=== PATIENT | female | born 1940 | race African-American/Black ===

== ENCOUNTER → 2016-08-23 | Outpatient (CLI) | payer OTHER ==
--- NOTE | 2016-08-23 18:30 | WOMENS IMAGING REPORT ---
EXAM DESCRIPTION: 3D SCREENING MAMMO BILAT COMPLETED DATE/TIME: 08/23/2016 1:32 pm REASON FOR STUDY: ROUTINE BILATERAL SCREENING;Z12.31 Z12.31 ENCNTR SCREEN MAMMOGRAM FOR MALIGNANT N EOPLASM OF KP COMPARISON: Multiple since 2011 TECHNIQUE: Standard craniocaudal and mediolateral oblique views of each breast recorded using digita l acquisition and breast tomosynthesis. LIMITATIONS: None. FINDINGS: Findings present which are benign by mammographic criteria. No suspicious masses, calcifi cations or architectural distortion. Pertinent benign findings: Benign vascular arterial calcifications Read with the assistance of CAD. .[facility] - R2 Cenova Version 1.3 .[facility] Imaging - R2 Cenova Version 1.3 .[facility] Imaging - R2 Cenova Version 2.4 .[facility] [place] - R2 Cenova Version 2.4 .[facility] - R2 Court Administrator Version 9.2 Benign mammographic findings may include one or more of the following: Smooth masses, popcorn/rim/co arse calcifications, asymmetries, post-procedure changes, and lesions with long-standing stability. IMPRESSION: BENIGN MAMMOGRAPHIC FINDINGS. BIRADS 2 BREAST DENSITY: b. There are scattered areas of fibroglandular density. BIRAD: 2 BENIGN FINDING(S) RECOMMENDATION: RECOMMENDATION: ROUTINE SCREENING COMMENT: The patient has been notified of the results by letter per SA requirements. Additional no tification policies are in place for contacting patient with suspicious or incomplete findings. Quality ID #[id number]: The [employer] recommends an annual screening mammogram for women aged 40 years or over. This facility utilizes a reminder system to ensure that all patients receive reminder letters, and/or direct phone calls for appointments. This includes reminders for routine scr eening mammograms, diagnostic mammograms, or other Breast Imaging Interventions when appropriate. Th is patient will be placed in the appropriate reminder system. The [employer] (ACR) has developed recommendations for screening MRI of the breast s in certain patient populations, to be used in conjunction with mammography. Breast MRI surveillanc e may be appropriate for women with more than 20% lifetime risk of developing breast cancer as deter mined by genetic testing, significant family history of the disease, or history of mantle radiation f or Hodgkins Disease. ACR Practice Guidelines 2008. DBT Technology DBT is a type of tomographic mammography. With conventional mammography, overlapping breast tissue ma y make lesions difficult to detect, even with good compression. DBT uses an x-ray tube that rotates a round the breast, taking images at different angles. These images are then combined to create thin sl ices of the breast that the radiologist can view as a 3D reconstruction. The [employer] unit can perform full-field digital mammograms (2D imaging); or DBT (3D imaging); or both, in a combination mode that quickly performs both the mammogram and the tomosynthesis scan while the breast is still compressed. PQRS 6045F: Fluoroscopic imaging is not utilized for breast tomosynthesis. TECHNICAL DOCUMENTATION: FINDING NUMBER: (1) ASSESSMENT: (1) JOB ID: [id number] [employer]- All Rights Reserved
== END ==
LOC: WI 13:03
PROVIDERS: ATTEND Nurse Practitioner
DX: Z12.31 Encounter for screening mammogram for malignant neoplasm of breast (principal)
CPT/HCPCS: 77063; G0202; 77067

== ENCOUNTER → 2017-09-02 | Outpatient (CLI) | payer OTHER ==
--- NOTE | 2017-09-04 16:50 | WOMENS IMAGING REPORT ---
EXAM DESCRIPTION: 3D SCREENING MAMMO BILAT COMPLETED DATE/TIME: 09/02/2017 11:29 am REASON FOR STUDY: ROUTINE SCREENING;Z12.31 Z12.31 ENCNTR SCREEN MAMMOGRAM FOR MALIGNANT NEOPLASM OF PK COMPARISON: Multiple since 2010 TECHNIQUE: Standard craniocaudal and mediolateral oblique views of each breast recorded using digita l acquisition and breast tomosynthesis. LIMITATIONS: None. FINDINGS: No masses, calcifications or architectural distortion. No areas of suspicion. Read with the assistance of CAD. .[facility] - R2 Cenova Version 1.3 .[facility] Imaging - R2 Cenova Version 1.3 .[facility] - R2 Cenova Version 2.4 .[facility] [place] R2 Cenova Version 2.4 .[facility] - R2 Vp Product Management Version 9.2 IMPRESSION: NORMAL MAMMOGRAM. BIRADS 1. BREAST DENSITY: b. There are scattered areas of fibroglandular density. BIRAD: 1 NEGATIVE RECOMMENDATION: ROUTINE SCREENING Please continue yearly bilateral screening mammography/tomosynthesis in August 2018 COMMENT: The patient has been notified of the results by letter per MQSA requirements. Additional no tification policies are in place for contacting patient with suspicious or incomplete findings. Quality ID #[id number]: The [employer] recommends an annual screening mammogram for women aged 40 years or over. This facility utilizes a reminder system to ensure that all patients receive reminder letters, and/or direct phone calls for appointments. This includes reminders for routine scr eening mammograms, diagnostic mammograms, or other Breast Imaging Interventions when appropriate. Th is patient will be placed in the appropriate reminder system. The [employer] (ACR) has developed recommendations for screening MRI of the breast s in certain patient populations, to be used in conjunction with mammography. Breast MRI surveillanc e may be appropriate for women with more than 20% lifetime risk of developing breast cancer as deter mined by genetic testing, significant family history of the disease, or history of mantle radiation f or Hodgkins Disease. ACR Practice Guidelines 2008. DBT Technology DBT is a type of tomographic mammography. With conventional mammography, overlapping breast tissue ma y make lesions difficult to detect, even with good compression. DBT uses an x-ray tube that rotates a round the breast, taking images at different angles. These images are then combined to create thin sl ices of the breast that the radiologist can view as a 3D reconstruction. The [employer] unit can perform full-field digital mammograms (2D imaging); or DBT (3D imaging); or both, in a combination mode that quickly performs both the mammogram and the tomosynthesis scan while the breast is still compressed. PQRS 6045F: Fluoroscopic imaging is not utilized for breast tomosynthesis. TECHNICAL DOCUMENTATION: FINDING NUMBER: (1) ASSESSMENT: (1) JOB ID: [id number] [employer]- All Rights Reserved Reading location - IP/workstation name: [facility]
== END ==
LOC: WI 11:35
PROVIDERS: ATTEND Nurse Practitioner
DX: Z12.31 Encounter for screening mammogram for malignant neoplasm of breast (principal)
CPT/HCPCS: 77063; 77067

== ENCOUNTER 2018-01-19 00:16 | Emergency (ER) | payer MEDICARE, OTHER ==
[2018-01-19 01:28] LABS: ABSOLUTE EOSINOPHILS # (AUTO) 0.1 10^3/uL (0.0-0.6); ABSOLUTE LYMPHOCYTES (AUTO) 0.6 10^3/uL (0.5-4.7); ABSOLUTE MONOCYTES (AUTO) 0.5 10^3/uL (0.1-1.4); BASOPHILS % (AUTO) 0.1 % (0-2); EOSINOPHILS % (AUTO) 0.6 % (0-6); HEMATOCRIT 40.6 % (36.0-47.0); HEMOGLOBIN 13.8 g/dL (12.0-15.5); LYMPHOCYTES % (AUTO) 6.2 % (13-45); MEAN CORPUSCULAR HEMOGLOBIN 34.4 pg (27.0-33.4); MEAN CORPUSCULAR VOLUME 101 fl (80-97); MONOCYTES % (AUTO) 5.4 % (3-13); RED BLOOD COUNT 4.01 10^6/uL (3.72-5.28); RED CELL DISTRIBUTION WIDTH 14.3 % (11.5-14.0); SEGMENTED NEUTROPHILS % (AUTO) 87.7 % (42-78); TOTAL CELLS COUNTED % (AUTO) 100 %; WHITE BLOOD COUNT 9.1 10^3/uL (4.0-10.5)
[2018-01-19 01:48] LABS: PLATELET COUNT 235 10^3/uL (150-450)
[2018-01-19 01:58] LABS: ALANINE AMINOTRANSFERASE 39 U/L (9-52); ALBUMIN 3.6 g/dL (3.5-5.0); ALKALINE PHOSPHATASE 148 U/L (38-126); ANION GAP 13 (5-19); ASPARTATE AMINO TRANSFERASE 97 U/L (14-36); BILIRUBIN,DIRECT 0.9 mg/dL (0.0-0.4); BILIRUBIN,TOTAL 1.3 mg/dL (0.2-1.3); BLOOD UREA NITROGEN 17 mg/dL (7-20); CALCIUM 9.5 mg/dL (8.4-10.2); CARBON DIOXIDE 31 mmol/L (22-30); CHLORIDE 100 mmol/L (98-107); GLUCOSE 117 mg/dL (75-110); LIPASE 125.5 U/L (23-300); POTASSIUM 3.5 mmol/L (3.6-5.0); SODIUM 143.6 mmol/L (137-145); TOTAL PROTEIN 7.8 g/dL (6.3-8.2)
[2018-01-19 02:10] LABS: TROPONIN I 0.026 ng/mL
[2018-01-19] MEDS ORDERED: RINGERS SOLUTION,LACTATED 1,000 ML IV ONE (02:28)
--- NOTE | 2018-01-19 02:31 | ER Document Report ---
ED General - General Chief Complaint: Pedal Edema Stated Complaint: SWELLING IN FEET Time Seen by Provider: 01/19/18 00:57 Notes: Patient is a 77-year-old female with a past medical history of autoimmune hepatitis, currently on daily steroids for therapy who presents with general fatigue, bilateral lower extremities both of which are ongoing for at least the past several months. Nothing is new or different that prompted a visit to the emergency department tonight. Patient states that nothing seems to improve or worsen her symptoms. Symptoms are worsened by exertion. She has not seen her general doctor regarding concerns. Denies history of similar symptoms prior to the past several months. She denies any chest pain, pleuritic pain, abdominal pain, orthopnea or syncope. States that she is not taking any medications currently other than her steroids although she is supposed to be on a blood pressure medication which she is not currently taking. TRAVEL OUTSIDE OF THE [place] IN LAST 30 DAYS: No - Related Data Allergies/Adverse Reactions: No Known Allergies Allergy (Verified 10/29/17 16:58) Past Medical History - General Information source: Patient, Relative - Social History Smoking Status: Never Smoker Frequency of alcohol use: None Drug Abuse: None Lives with: Family Family History: Reviewed & Not Pertinent Patient has suicidal ideation: No Patient has homicidal ideation: No - Past Medical History Cardiac Medical History: Reports: Hx Hypertension - MEDICATED Denies: Hx Heart Attack Pulmonary Medical History: Denies: Hx Asthma Neurological Medical History: Denies: Hx Cerebrovascular Accident, Hx Seizures Renal/ Medical History: Denies: Hx Peritoneal Dialysis GI Medical History: Denies: Hx Hepatitis, Hx Hiatal Hernia, Hx Ulcer Psychiatric Medical History: Denies: Hx Depression Infectious Medical History: Denies: Hx Hepatitis Past Surgical History: Reports: Hx Urinary Tract Surgery - kidney stone removal , Hx Vascular Surgery - removal of kidney stone, Other - Kidney stone removal about 40 years ago.. Denies: Hx Hysterectomy, Hx Mastectomy, Hx Open Heart Surgery, Hx Pacemaker - Immunizations Immunizations up to date: Yes Hx Diphtheria, Pertussis, Tetanus Vaccination: Yes Review of Systems - Review of Systems Notes: Constitutional: Negative for fever. HENT: Negative for sore throat. Eyes: Negative for visual changes. Cardiovascular: Negative for chest pain. Respiratory: Positive for exertional dyspnea Gastrointestinal: Negative for abdominal pain, vomiting or diarrhea. Genitourinary: Negative for dysuria. Musculoskeletal: Negative for back pain. Skin: Negative for rash. Neurological: Negative for headaches, weakness or numbness. 10 point ROS negative except as marked above and in HPI. Physical Exam - Vital signs Vitals: Resp 24 H 01/19/18 01:00 Interpretation: Tachycardic Notes: PHYSICAL EXAMINATION: GENERAL: Frail, elderly, no acute distress HEAD: Atraumatic, normocephalic. EYES: Pupils equal round and reactive to light, extraocular movements intact, sclera anicteric, conjunctiva are normal. ENT: nares patent, oropharynx clear without exudates. Mildly dry mucous membranes. NECK: Normal range of motion, supple without lymphadenopathy LUNGS: Breath sounds clear to auscultation bilaterally and equal. No wheezes rales or rhonchi. HEART: Regular tachycardia without murmurs ABDOMEN: Soft, nontender, normoactive bowel sounds. No guarding, no rebound. No masses appreciated. EXTREMITIES: Normal range of motion, trace edema in the bilateral lower extremities that is equal and symmetric no cyanosis. NEUROLOGICAL: No focal neurological deficits. Moves all extremities spontaneously and on command. PSYCH: Normal mood, normal affect. SKIN: Warm, Dry, normal turgor, no rashes or lesions noted. Course - Re-evaluation Re-evalutation: 01/19/18 02:29 Patient presents with complaints of feeling generally tired, fatigued, having bilateral lower extremity edema which has been ongoing as she states for at least the past several months. Nothing is new or different tonight that prompted a visit to the emergency department. On exam the patient is noted to be tachycardic, heart rate 110-115 range which reviewing the patient's previous hospitalizations this is not a normal heart rate. Patient's oxygen saturation is 95% which is similar to her previous baseline. Exam is completely unremarkable with exception of trace edema that is equal and symmetric in the bilateral lower extremities the patient is tachycardic. Her labs showed normalization of her previously deranged LFTs apparently which was secondary to autoimmune hepatitis. The patient is currently taking steroids. She has no focal abdominal tenderness on exam. Pulmonary embolism would be a differential consideration for exam the patient is complaining that she feels short of breath whenever she exerts herself and has no energy. This would also be noted in the setting of bilateral lower extremity edema and tachycardia. We will therefore proceed with CTA of the chest to further clarify. If this is unremarkable patient's tachycardia does resolve I do not see any alternative life-threatening pathology that would explain patient's presentation today. Will also check thyroid studies. 01/19/18 03:34 CTA negative for any acute pathology. Thyroid studies pending. Tachycardia has resolved. Patient states she feels improved after receiving IV fluids. Anticipate that this is a combination of steroid side effect as well as dehydration. I have advised the patient will need to follow-up closely with her primary care physician. At this time will discharge with return precautions and follow-up recommendations. Verbal discharge instructions given a the bedside and opportunity for questions given. Medication warnings reviewed. Patient is in agreement with this plan and has verbalized understanding of return precautions and the need for primary care follow-up in the next 24-72 hours. - Vital Signs Vital signs: Temp Pulse Resp BP Pulse Ox 97.8 F 20 137/88 H 94 01/19/18 04:09 01/19/18 04:09 01/19/18 04:09 01/19/18 04:09 - Laboratory Result Diagrams: 01/19/18 01:17 01/19/18 01:17 Laboratory results interpreted by me: 01/19/18 01/19/18 01/19/18 01:17 01:17 01:17 MCV 101 H MCH 34.4 H RDW 14.3 H Seg Neutrophils % 87.7 H Lymphocytes % 6.2 L Potassium 3.5 L Carbon Dioxide 31 H Est GFR ( Amer) 58 L Est GFR (Non-Af Amer) 48 L Glucose 117 H Direct Bilirubin 0.9 H AST 97 H Alkaline Phosphatase 148 H Free T3 pg/mL 2.70 L - Diagnostic Test Radiology reviewed: Image reviewed, Reports reviewed Discharge - Discharge Clinical Impression: Dehydration, Exertional dyspnea, Medication side effect Fatigue Qualifiers: Fatigue type: unspecified Qualified Code(s): R53.83 - Other fatigue Condition: Fair Disposition: HOME, SELF-CARE Additional Instructions: Your workup today is relatively unremarkable without any significant lab abnormalities. CAT scan of your chest is also normal. Your symptoms may be related to dehydration given that you initially had an elevated heart rate which did improve after receiving IV fluids. Long-term use of steroids could also be contributing to your fatigue and leg swelling. Please follow-up closely with your primary care doctor. Return to the emergency department immediately if you pass out, develop chest pain, develop a fever greater than 100.4 F, or any other symptoms that are worrisome to you. Referrals: CRISTINE BUTLER NP [Primary Care Provider] - Follow up tomorrow
--- NOTE | 2018-01-19 03:13 | RADIOLOGY REPORT (SQ) ---
EXAM DESCRIPTION: CT CHEST ANGIOGRAPHY WITHOUT THEN WITH IV CONTRAST COMPLETED DATE/TME: 01/19/2018 02:28 CLINICAL HISTORY: 77 years Female, sob, tachycardic Comparison:10/29/2017 Technique: IV contrast. Coronal and sagittal reformat. This exam was performed according to our departmental dose-optimization program, which includes automated exposure control, adjustment of the mA and/or kV according to patient size and/or use of iterative reconstruction technique.[facility]: Dose Right [facility]: CareDose [facility]: Dose Right [facility]: Teradose 4D [facility]: [employer] LIMITATIONS: No 3-D reconstruction. Findings: Moderate pulmonary edema pattern includes mixed interstitial and airspace opacities, right more than left. Increased lung volume. Cardiac enlargement. No pulmonary embolus. No right ventricular strain. Likely benign, low-attenuation splenic lesion(s) not definitively characterized. Degenerative disc disease. Cholelithiasis/gallbladder sludge. 0.3 cm right renal stone/calcification. Inferior neck, axillae, mediastinum, airway, lymphatics, vasculature, upper abdomen, and musculoskeleton appear otherwise unremarkable. Impression: 1. Moderate CHF/pulmonary edema pattern. Differential diagnosis includes multifocal pneumonia. 2. No pulmonary embolus. 3. Cholelithiasis. 4. Small right renal stone.
[2018-01-19 03:40] LABS: FREE T3 2.7 pg/mL (2.77-5.27); FREE T4 (FREE THYROXINE) 1.85 ng/dL (0.78-2.19)
[2018-01-19 03:54] LABS: THYROID STIMULATING HORMONE 1.59 uIU/mL (0.47-4.68)
[2018-01-19 04:23] VITALS: BP 137/88
== END 2018-01-19 04:24 | disposition home or self-care (01) ==
LOC: ER 00:16
DX: E86.0 Dehydration (principal); R53.83 Other fatigue; R00.0 Tachycardia, unspecified; R60.0 Localized edema; R06.09 Other forms of dyspnea; T88.7XXA Unspecified adverse effect of drug or medicament, initial encounter; T50.905A Adverse effect of unspecified drugs, medicaments and biological substances, initial encounter; K75.4 Autoimmune hepatitis; Z79.899 Other long term (current) drug therapy
CPT/HCPCS: 99285; 96360; 36415; 84439; 83690; 84443; 85025; 80053; 84484; 84481; 83880; 71275; J7120